=== PATIENT | male | born 1955 | race Caucasian/White ===

== ENCOUNTER → 2019-10-24 | Day surgery (SDC) | payer BC, MEDICARE ==
[~2019-10-24] MED LIST: ACETAMINOPHEN 325 MG TABLET PO PRN; ALBUTEROL SULFATE 2.5 MG/3 ML NEBU. NEB PRN; AMLO10TA8 PO; ASPI81TA59 PO; ATOR20TA58 PO; ATROPINE 0.5 MG/5 ML DISP.SYRIN. IV PRN; IV RINGERS SOLUTION,LACTATED 1,000 ML IV SCH; LISI1TAB20 PO; METO-313 PO; NAPR-695 PO; ONDANSETRON PF 4 MG/2 ML VIAL. IV PRN; PROPOFOL 40 ML IV ONE; diphenhydrAMINE 50 MG/ML VIAL IV PRN
[2019-10-24 13:45] VITALS: BP 125/59
--- NOTE | 2019-10-26 14:07 | PATHOLOGY ---
[facility] Accession Number: [id number] . 01 Material submitted: . colon - ASCENDING POLYP. Modifiers: ascending . 01 Clinical history: . history of polyps . 02 Diagnosis: Colon biopsy, ascending colon polyp: - Tubular adenoma. - Small hyperplastic mucosal-associated lymphoid aggregate. ([facility] 10/26/2019) [facility] 10/26/2019 1341 Local . 02 Comment: There is no high-grade dysplasia or evidence of malignancy. ([facility] 10/26/2019) . 02 Electronically signed: . Ricci oRsen MD, Pathologist NPI- [id number] . 01 Gross description: . The specimen is received in formalin, labeled "TikaPratikon", "ascending polyp". Received is a single small slightly polypoid segment of pale panda soft tissue measuring 0.2 cm. The specimen is entirely submitted in cassette A1.([facility]; 10/25/2019) [facility] 10/25/2019 1850 Local . 02 Pathologist provided ICD-10: D12.2 . 02 CPT . 963947 Specimen Comment: A courtesy copy of this report has been sent to [phone] Specimen Comment: [phone] Specimen Comment: Report sent to / DR JACKSON Specimen Comment: A duplicate report has been generated due to demographic updates. Performed at: [facility] [address] [facility] [address], [place] [id number] MD Dre Blanchard MD Phone: [phone] Performed at: [facility] [address] [place], [place] [id number] MD Ricci Rosen MD Phone: [phone]
== END ==
LOC: SURG 09:59
PROVIDERS: ATTEND Internal Medicine Gastroenterology
DX: Z12.11 Encounter for screening for malignant neoplasm of colon (principal); D12.2 Benign neoplasm of ascending colon; K44.9 Diaphragmatic hernia without obstruction or gangrene; K21.9 Gastro-esophageal reflux disease without esophagitis; I10 Essential (primary) hypertension; Z80.0 Family history of malignant neoplasm of digestive organs
CPT/HCPCS: 45380; 88305; J2704